=== PATIENT | male | born 1975 | race Hispanic/Latino ===

== ENCOUNTER 2018-11-30 08:20 | Emergency (ER) | payer SELFPAY ==
[2018-11-30] MEDS ORDERED: KETOROLAC TROMETHAMINE 60 MG/2 ML VIAL ONE (08:53)
[2018-11-30] MEDS ORDERED: DIAZEPAM 5 MG TABLET ONE ×2 (08:53→08:58)
== END 2018-11-30 10:12 | disposition home or self-care (01) ==
LOC: EDH 08:20
DX: M54.5 Low back pain (principal); Z72.0 Tobacco use
CPT/HCPCS: 96372; 99283; J1885